=== PATIENT | male | born 1985 | race African-American/Black ===

== ENCOUNTER → 2023-05-08 | Outpatient (CLI) | payer MEDICARE, OTHER ==
[2023-05-08 17:34] LABS: Albumin, Blood 4.6 g/dL (3.4-5.0); Albumin/Globulin Ratio 1.1 (0.8-1.8); Bilirubin, Total 0.6 mg/dL (0.1-1.0); Bun/Creatinine Ratio 10.5 (12.0-20.0); Calcium, Blood 10.1 mg/dL (8.5-10.1); Creatinine, Blood 1.05 mg/dL (0.60-1.20); Globulin, Blood 4.2 g/dL (2.2-4.0); Potassium, Blood 3.9 mmol/L (3.5-5.5); Total Protein, Blood 8.8 g/dL (6.4-8.2)
== END | disposition home or self-care (01) ==
LOC: LAB 17:19 → LAB SHORT 17:19
PROVIDERS: Family Medicine
DX: E11.9 Type 2 diabetes mellitus without complications (principal)
CPT/HCPCS: 80053; 83036